=== PATIENT | male | born 2000 | race Caucasian/White ===

== ENCOUNTER 2021-10-05 16:27 | Emergency (ER) | payer OTHER ==
[2021-10-05] MEDS ORDERED: Cephalexin 500 MG Cap ONE (17:15)
[2021-10-05] MEDS ORDERED: Lidocaine 1% with EPINEPHrine 1:100,000 20 ML MDV INJECT ONE (17:29)
== END 2021-10-05 17:26 | disposition home or self-care (01) ==
LOC: LB.ED 16:27
DX: S01.02XA Laceration with foreign body of scalp, initial encounter (principal); W45.8XXA Other foreign body or object entering through skin, initial encounter
CPT/HCPCS: 12001; 99283; A9270; 99281